=== PATIENT | female | born 1950 | race Caucasian/White ===

== ENCOUNTER 2021-05-20 07:58 | Day surgery (SDC) | payer MEDICARE, BC ==
[~2021-05-20 07:58] MED LIST: Lactated Ringers 1,000 ML IV SCH; Sodium Chloride 0.9% 10 ML Syringe FLUSH PRN
[2021-05-20] MEDS ORDERED: fentaNYL 100 MCG/2 ML SDV ONE (09:01)
[2021-05-20] MEDS ORDERED: Propofol 200 MG/20 ML SDV ONE ×2 (09:01→10:17)
[2021-05-20 11:30] VITALS: BP 121/79; PULSE 66
== END 2021-05-20 11:50 | disposition home or self-care (01) ==
LOC: VM.SDS 07:58
PROVIDERS: ATTEND Family Medicine
DX: Z12.11 Encounter for screening for malignant neoplasm of colon (principal); D12.5 Benign neoplasm of sigmoid colon; K62.1 Rectal polyp; E78.00 Pure hypercholesterolemia, unspecified; N95.2 Postmenopausal atrophic vaginitis; Z88.2 Allergy status to sulfonamides; Z88.8 Allergy status to other drugs, medicaments and biological substances; Z98.890 Other specified postprocedural states; Z79.899 Other long term (current) drug therapy
CPT/HCPCS: 00812; 45380; J2704; J3010; J7120; 88305